=== PATIENT | female | born 1970 ===

== ENCOUNTER 2017-05-13 07:08 | Day surgery (SDC) | payer MEDICARE, MEDICAID ==
[2017-05-13 08:08] VITALS: BMI 25.4
[2017-05-13] MEDS ORDERED: Albuterol HFA 90 mcg/actuation (8 g) ONE (09:22)
[2017-05-13] MEDS ORDERED: Propofol 10 mg/ml Inj (20 ML) ONE (09:22)
[2017-05-13] MEDS ORDERED: Lactated Ringer's 500 ML IV ONE (09:33)
[2017-05-13 10:06] VITALS: PULSE 60
[2017-05-13 12:29] VITALS: BP 108/62; RESP 14; TEMP 97; O2SAT 100
== END 2017-05-13 10:50 | disposition home or self-care (01) ==
LOC: C.ENDO 07:08
PROVIDERS: ATTEND Internal Medicine Gastroenterology
DX: K29.50 Unspecified chronic gastritis without bleeding (principal); R10.13 Epigastric pain; K44.9 Diaphragmatic hernia without obstruction or gangrene; B96.81 Helicobacter pylori [H. pylori] as the cause of diseases classified elsewhere
CPT/HCPCS: 43239; 84703; 88305; J2704; J3010; J7120